=== PATIENT | female | born 1995 | race Caucasian/White ===

== ENCOUNTER 2019-10-20 12:31 | Outpatient (REF) | payer MEDICAID, SELFPAY ==
--- NOTE | 2019-10-20 11:00 | PAPFT_PTH ---
PATIENT: Gia Pedersen LOC: [facility]#:[id number] AGE/SX: 24/F ROOM: RE10/20/[address]: Fay Vaughn : 1995 BED: DIS: 10/20/2019 SPEC #: [id number] RECD: 10/23/19 12:56 STATUS: DELBERT REAntonio #: [id number] NINA: 10/20/19 11:[address]: Fay Tatum DEPT: [facility] Cytology RECD BY: Margoth Ch ENTERED: 10/23/19 12:56 SP TYPE: PAPFT OTHR DR: Meri Lucia Tissues: 1 - CX/ENDOCX FOR PAP SMEARS Procedures: PAP THIN PREP/UVM Screening Comments: [id number] (CHLAMYDIA/GC)
[2019-10-20 21:30] LABS: Hemoglobin A1C 5.6 % (3.8-5.6)
[2019-10-20 21:53] LABS: Calculated LDL 180 mg/dL (<100); Cholesterol 262 mg/dL (<200); HDL Cholesterol 57 mg/dL (40-60); TSH 2.74 uIU/mL (0.36-3.74); Triglyceride 129 mg/dL (<150)
[2019-10-24 14:22] LABS: Chlamydia Result Negative (Negative); GC Result Negative (Negative)
== END 2019-10-20 12:51 ==
LOC: NCHCN 12:31
PROVIDERS: PCP Family Medicine; Visit Provider Nurse Practitioner Family
DX: Z13.29 Encounter for screening for other suspected endocrine disorder (principal); Z13.1 Encounter for screening for diabetes mellitus; Z13.220 Encounter for screening for lipoid disorders; E66.9 Obesity, unspecified; Z00.00 Encounter for general adult medical examination without abnormal findings; Z12.4 Encounter for screening for malignant neoplasm of cervix
CPT/HCPCS: 80061; 87491; 87591; 88142; 83036; 84443

== ENCOUNTER 2019-10-25 09:51 | Outpatient (REF) | payer MEDICAID, SELFPAY ==
[2019-10-25 22:44] LABS: Calculated LDL 217 mg/dL (<100); Cholesterol 294 mg/dL (<200); HDL Cholesterol 60 mg/dL (40-60); Triglyceride 89 mg/dL (<150)
== END 2019-10-25 10:11 ==
LOC: NCHCN 09:51
PROVIDERS: PCP Family Medicine; Visit Provider Nurse Practitioner Family
DX: E66.9 Obesity, unspecified (principal); Z13.220 Encounter for screening for lipoid disorders
CPT/HCPCS: 80061

== ENCOUNTER 2020-06-19 13:38 | Outpatient (REF) | payer MEDICAID, SELFPAY ==
[2020-06-21 23:17] LABS: Patient Race White; SARS-CoV-2 RNA Undetected (Undetected); SARS-CoV-2 Specimen Source Nasopharynx
== END 2020-06-19 13:58 ==
LOC: NCHCN 13:38
PROVIDERS: PCP Family Medicine; Visit Provider Nurse Practitioner Family
DX: Z20.828 Contact with and (suspected) exposure to other viral communicable diseases (principal)
CPT/HCPCS: U0003

== ENCOUNTER 2020-10-17 21:53 | Outpatient (CLI) | payer MEDICAID, SELFPAY ==
--- NOTE | 2020-10-17 | DI.US_ITS ---
EXAM: US OB 1ST TRIMESTER CLINICAL HISTORY: AMENORRHEA, N91.2, POSITIVE TEST, IUD. TECHNIQUE: First trimester obstetrical ultrasound was performed. Perform both transabdominal and tr ansvaginal COMPARISON: No exams were available for comparison FINDINGS: There is an IUD which is low in position, partly within the upper cervical canal and the upper aspect in the lower uterine segment. There is an intrauterine gestational sac towards the fundus which measures 13 millimeters correspondi ng to approximately 6 weeks and 1 day. There is a normal appearing yolk sac therein. However, there is no visible pole at this time evident within the gestational sac. No evidence of subchorion ic hemorrhage. No uterine fibroids. Maternal ovaries: Right ovary measures 3 x 1.6 x 1.8 cm and contains small follicles Left ovary measures 3.2 x 1.8 x 3.2 cm and contains small follicles. There is no fluid in the cul-de-sac and adnexal regions. IMPRESSION:: There is both an IUD and intrauterine gestation sac. However, the IUD is in suboptimal position, somewhat low as described above. In addition, the intrauterine gestational sac contains a normal appearing yolk sac but does not appear to contain an obvious pole at this time. There is no extraovarian adnexal mass and there is no free fluid in the adnexal regions are cul-de-sa c. Recommend repeat transvaginal ultrasound examination in a few days time. DATA REPOSITORY:
== END 2020-10-17 22:13 ==
PROVIDERS: PCP Family Medicine; Visit Provider Nurse Practitioner Family
DX: N91.2 Amenorrhea, unspecified (principal); Z32.01 Encounter for pregnancy test, result positive; Z97.5 Presence of (intrauterine) contraceptive device
CPT/HCPCS: 76801

== ENCOUNTER 2020-10-24 00:35 | Outpatient (CLI) | payer MEDICAID, SELFPAY ==
--- NOTE | 2020-10-24 | DI.US_ITS ---
EXAM: US PELVIS TRANSVAGINAL CLINICAL HISTORY: IUD IN PLACE LAST US,NO POLE,? VIABILITY,CHECK POLE,HEARTBEAT. COMPARISON: US US OB 1ST TRIMESTER from 10/17/2020 TECHNIQUE: Transabdominal Transvaginal first trimester obstetrical ultrasound performed. FINDINGS: Sonographic images demonstrate a single intrauterine gestation. A yolk sac and pole are seen. Sonographically assessed gestational age based upon crown-rump length of 0.73 cm is: 6 weeks 4 days Estimated date of delivery based on this ultrasound is: 06/15/2021 heart rate motion is Dopplered at: 128 bpm. No free fluid identified. Both ovaries appear sonographically normal. The right ovary measures 2.4 x 1.8 x 1.7 cm. Small folli cular cysts are present. The left ovary measures 2.7 x 2.1 x 1.8 cm. There is a 1.7 x 1.5 x 1.5 cm corpus luteal cyst on the left ovary. Pelvic Measurments Uterus: 7.8 x 4.7 x 7.4 cm Rt Ovary: 3.4 x 1.0 x 1.7 cm Lt Ovary: 2.6 x 2.1 x 1.8 cm Uterus: There is a linear echogenic object within the endometrial canal. Based on the clinical histo ry, this likely represents an arm of the previously noted IUD. The IUD arm lies to the left of the g estational sac and closer to the internal os compared to the gestational sac. IMPRESSION: 1. There is a single living intrauterine gestation. Estimated sonographic age is 6 weeks 4 days. Th is is based on crown-rump length. 2. One arm of the recently removed IUD remains within the endometrial canal. It lies to the left of the gestational sac and closer to the internal os. It lies at least 1 cm away from the gestational s ac. DATA REPOSITORY:
== END 2020-10-24 00:36 | disposition home or self-care (01) ==
LOC: DI 00:36
PROVIDERS: PCP Family Medicine; Visit Provider Nurse Practitioner Family
DX: O26.31 Retained intrauterine contraceptive device in pregnancy, first trimester (principal)
CPT/HCPCS: 76830; 76856

== ENCOUNTER 2023-02-08 14:21 | Outpatient (REF) | payer MEDICAID, SELFPAY ==
--- NOTE | 2023-02-08 13:00 | PAPFT_PTH ---
PATIENT: Gia Pedersen LOC: [facility]#:[id number] AGE/SX: 27/F ROOM: RE02/08/[address]: Fay Vaughn : 1995 BED: DIS: 02/08/2023 SPEC #: [id number] RECD: 02/09/23 12:56 STATUS: DELBERT REQ #: [id number] NINA: 02/08/23 13:[address]: Fay Tatum DEPT: [facility] Cytology RECD BY: Margoth Ch ENTERED: 02/09/23 12:57 SP TYPE: PAPFT OTHR DR: Meri Lucia Tissues: 1 - CX/ENDOCX FOR PAP SMEARS Procedures: PAP THIN PREP/UVM Screening Comments: [id number]
[2023-02-08 21:23] LABS: HCT 40.6 % (36.0-46.0); HGB 13.6 g/dL (11.2-15.7); MCH 29.5 pg (27.0-33.0); MCHC 33.5 % (32.0-36.0); MCV 88 fL (80-95); MPV 11.2 fL (8.0-11.0); Platelet Count 255 10^3/uL (130-400); RBC 4.61 10^6/uL (3.93-5.22); RDW 12.8 % (11.7-14.6); RDW-SD 41.5 fL; WBC 6.37 10^3/uL (4.4-10.8)
[2023-02-08 21:57] LABS: ALT 28 U/L (14-59); AST 22 U/L (15-37); Albumin 3.9 g/dL (3.4-5.0); Alkaline Phosphatase 58 U/L (46-116); BUN 11 mg/dL (7-18); Bilirubin, Total 0.5 mg/dL (0.2-1.0); CREATININE 0.5 mg/dL (0.55-1.02); Calcium 8.7 mg/dL (8.5-10.1); Calculated LDL 190 mg/dL (<100); Chloride 103 mmol/L (98-107); Cholesterol 274 mg/dL (<200); Estimated GFR 130.94 (mL/min/1.73m2); Glucose 85 mg/dL (74-106); HDL Cholesterol 63 mg/dL (40-60); Potassium 3.8 mmol/L (3.5-5.1); Sodium 137 mmol/L (136-145); TSH 2.05 uIU/mL (0.36-3.74); Total Protein 7.8 g/dL (6.4-8.2); Triglyceride 107 mg/dL (<150)
[2023-02-09 11:55] LABS: Hemoglobin A1C 5.1 % (<5.7)
== END 2023-02-08 14:22 | disposition home or self-care (01) ==
LOC: NCHCN 14:21
PROVIDERS: PCP Family Medicine; Visit Provider Nurse Practitioner Family
DX: Z12.4 Encounter for screening for malignant neoplasm of cervix (principal)
CPT/HCPCS: 80053; 80061; 85027; 88142; 83036; 84443

== ENCOUNTER 2023-06-17 20:38 | Outpatient (REF) | payer MEDICAID, SELFPAY ==
[2023-06-17 21:12] LABS: Abs Immature Grans 0.02 10^3/uL (0.0-0.06); Absolute Basophil Count 0.02 10^3/uL (0.0-0.2); Absolute Eosinophil Count 0.08 10^3/uL (0.0-0.7); Absolute Monocyte Count 0.36 10^3/uL (0.1-0.8); Absolute Neutrophil Count 4.65 10^3/uL (1.2-6.7); Basophils % 0.3; Eosinophils % 1.1; HCT 40.8 % (36.0-46.0); HGB 13.6 g/dL (11.2-15.7); Immature Grans % 0.3; MCHC 33.3 % (32.0-36.0); MCV 90 fL (80-95); MPV 11.5 fL (8.0-11.0); Neutrophils % 64.3; Platelet Count 251 10^3/uL (130-400); RBC 4.54 10^6/uL (3.93-5.22); RDW 12.7 % (11.7-14.6); RDW-SD 41.6 fL; WBC 7.23 10^3/uL (4.4-10.8)
[2023-06-17 21:21] LABS: ALT 24 U/L (14-59); AST 20 U/L (15-37); Albumin 3.6 g/dL (3.4-5.0); Alkaline Phosphatase 55 U/L (46-116); Anion Gap 9.1 mmol/L (3-11); BUN 20 mg/dL (7-18); Bilirubin, Total 0.2 mg/dL (0.2-1.0); CO2 25.9 mmol/L (21.0-32.0); CREATININE 0.7 mg/dL (0.55-1.02); Calcium 9.2 mg/dL (8.5-10.1); Chloride 105 mmol/L (98-107); Estimated GFR 120.74 (mL/min/1.73m2); Glucose 108 mg/dL (74-106); Lipase 59 U/L (16-77); Potassium 4.2 mmol/L (3.5-5.1); Sodium 140 mmol/L (136-145); Total Protein 7.4 g/dL (6.4-8.2)
== END 2023-06-17 20:39 | disposition home or self-care (01) ==
LOC: NCHCN 20:38
PROVIDERS: PCP Family Medicine; Visit Provider Family Medicine
DX: R10.13 Epigastric pain (principal)
CPT/HCPCS: 80053; 83690; 85025

== ENCOUNTER 2023-12-13 19:56 | Outpatient (REF) | payer MEDICAID, SELFPAY | END 2023-12-13 19:57 | disposition home or self-care (01) | LOC: LBN 19:56 | PROVIDERS: PCP Family Medicine; Visit Provider Nurse Practitioner Family | DX: J02.9 Acute pharyngitis, unspecified (principal) | CPT/HCPCS: 87070 ==

== ENCOUNTER 2024-08-28 13:45 | Outpatient (REF) | payer MEDICAID, SELFPAY ==
[2024-08-28 15:41] LABS: Abs Immature Grans 0.03 10^3/uL (0.0-0.06); Absolute Basophil Count 0.02 10^3/uL (0.0-0.2); Absolute Eosinophil Count 0.12 10^3/uL (0.0-0.7); Absolute Lymphocyte Count 2.12 10^3/uL (1.2-3.4); Absolute Monocyte Count 0.39 10^3/uL (0.1-0.8); Absolute Neutrophil Count 4.41 10^3/uL (1.2-6.7); Basophils % 0.3 %; Eosinophils % 1.7 %; HCT 44.1 % (36.0-46.0); HGB 14.8 g/dL (11.2-15.7); Immature Grans % 0.4 %; Lymphocytes % 29.9 %; MCH 29.9 pg (27.0-33.0); MCHC 33.6 % (32.0-36.0); MCV 89 fL (80-95); MPV 10.9 fL (8.0-11.0); Monocytes % 5.5 %; Neutrophils % 62.2 %; Platelet Count 251 10^3/uL (130-400); RBC 4.95 10^6/uL (3.93-5.22); RDW 12.7 % (11.7-14.6); RDW-SD 41.5 fL; WBC 7.09 10^3/uL (4.4-10.8)
[2024-08-28 16:04] LABS: Hemoglobin A1C 5.4 % (<5.7)
[2024-08-28 16:51] LABS: ALT 41 U/L (14-59); AST 24 U/L (15-37); Alkaline Phosphatase 54 U/L (46-116); Anion Gap 10.5 mmol/L (3-11); BUN 11 mg/dL (7-18); Bilirubin, Total 0.42 mg/dL (0.2-1.0); CO2 26.5 mmol/L (21.0-32.0); CREATININE 0.6 mg/dL (0.55-1.02); Calcium 9.2 mg/dL (8.5-10.1); Calculated LDL 167 mg/dL (<100); Chloride 104 mmol/L (98-107); Cholesterol 266 mg/dL (<200); Estimated GFR 123.76 (mL/min/1.73m2); Glucose 82 mg/dL (74-106); HDL Cholesterol 79 mg/dL (40-60); Potassium 4.6 mmol/L (3.5-5.1); Sodium 141 mmol/L (136-145); TSH 2.15 uIU/mL (0.36-3.74); Total Protein 7.9 g/dL (6.4-8.2); Triglyceride 100 mg/dL (<150); Vitamin D 25 Total 22.3 ng/mL (30-100)
== END 2024-08-28 13:46 | disposition home or self-care (01) ==
LOC: NCHCN 13:45
PROVIDERS: PCP Family Medicine; Visit Provider Nurse Practitioner Family
DX: E66.9 Obesity, unspecified (principal); E78.5 Hyperlipidemia, unspecified; R53.83 Other fatigue
CPT/HCPCS: 80053; 80061; 82306; 83036; 84443; 85025

== ENCOUNTER 2025-02-19 02:35 | Outpatient (CLI) | payer MEDICAID, SELFPAY ==
--- NOTE | 2025-02-19 14:30 | DI.US_ITS ---
APPROVED REPORT EXAM: Comprehensive 2D, Doppler, and color-flow Echocardiogram Patient Location: Out-Patient [facility] Operator: Dwain Aguilar RDCS (AE) Indications: Murmur Other Information Study Quality: Adequate Conclusion Normal left ventricular wall thickness and chamber size. Ejection fraction is 65%. Wall motion is n ormal Normal right ventricular size and function Both atria are normal in size There is no structural or hemodynamically significant valvular disease Wall motion Left Ventricle The left ventricle is normal size. Left ventricular systolic function is normal. The left ventricular ejection fraction is within the normal range. There is normal left ventricular wall thickness. There is normal LV segmental wall motion. The left ventricular diastolic function is normal. There is no v entricular septal defect visualized. LVEF is LVEF is 65%. Right Ventricle The right ventricle is normal size. The right ventricular systolic function is normal. Atria The left atrium size is normal. The right atrium size is normal. The interatrial septum is intact wit h no evidence for an atrial septal defect. Aortic Valve The aortic valve is normal in structure. Aortic valve is trileaflet. There is no aortic valvular sten osis. No aortic regurgitation is present. Mitral Valve The mitral valve is normal in structure. No evidence of mitral valve stenosis. There is no mitral chris ve regurgitation noted. Tricuspid Valve The tricuspid valve is normal in structure. There is no tricuspid valve stenosis. Trace tricuspid reg urgitation. The RVSP is 19.1 mmHg. Pulmonic Valve The pulmonary valve is normal in structure. There is no pulmonic valvular stenosis. Trace pulmonic re gurgitation. Great Vessels The aortic root is normal in size. The ascending aorta is normal in size. Aortic arch is normal in ca liber. IVC is normal in size and collapses >50% with inspiration. Pericardium There is no pericardial effusion. 2D Dimensions IVSD d PLAX 0.86 cm F: 0.6-1.0 Ao Root d 2.80 cm F: 2.7 - 3.3 LVPW d PLAX 0.86 cm F: 0.6 - 1.0 Ao Asc Diam d 2.76 cm F: 2.3 - 3.1 LVID d PLAX 4.37 cm F: 3.8 - 5.2 LVDs 2.94 cm F: 2.2 - 3.5 LV EF Teichholz 61.4 % FS 32.73 % LV EDV (Teich) 86.3 mL LV ESV (Teich) 33.3 mL Stroke Vol Index (Teich) 27.75 M-Mode TAPSE 3.10 cm (M/F) >1.7 Auto EF LV EDV A4C 103.8 mL LV EDV A2C 114.1 mL LV EDV BP 109.2 mL LV ESV A4C 38.8 mL LV ESV A2C 43.7 mL LV ESV BP 41.7 mL LVEF(%) A4C 62.6 % LVEF(%) A2C 61.7 % LVEF(%) BP 61.8 % LV SV A4C 65.0 ml LV SV A2C 70.4 ml LV SV BP 67.5 ml LV CO A4C 4.4 L/min LV CO A2C 5.5 L/min LV CO BP 5.0 L/min HR A4C 68.03 BPM HR A2C 78.74 BPM LV EDV Index (BP) LA Volume LA Length A4C 3.7 cm LA Length A2C 3.8 cm LA Area A4C s 11.06 cm2 LA Area A2C s 8.72 cm2 LA Vol A4C A-L 27.84 mL LA Vol A2C A-L 17.22 mL LA Vol Biplane A-L 22.0 mL LA Vol/BSA A4C A-L LA Vol/BSA A2C A-L LA Vol/BSA BP A-L 11.5 mL/m2 LA Vol A4C MOD 27.2 mL LA Vol A2C MOD 16.4 mL LA Vol BP MOD 21.0 mL RA Volume RA Area A4C 7.9 cm2 RA ESV A4C (A-L) 15.1mL RA Vol/BSA A4C A-L RA Length A4C 3.5 cm RA ESV A4C (MOD) 14.4mL LV Diastology MV E' medial 0.171 (>0.07 m/s) MV E Vmax 1.08 (0.4-1.3 m/s) MV E/E' MED 6.32 (<14) MV A Vmax 0.80 (0.4-1.3 m/s) MV E' lateral 0.156 (>0.1 m/s) E/A Ratio 1.4 MV E/E' LAT 6.92 (<14) MV E' Average 0.163 m/s MV E/E'(average) 6.61 Aortic Valve AoV Vmax 1.09 m/s LVOT Vmax 1.00 m/s AoV Peak Grad 4.8 mmHg LVOT Peak Grad 4.0 mmHg AoV Area (Vmax) 3.01 cm2 LVOT VTI 0.206 m AoV VTI 0.255 m LVOT Mean Grad 2.0 mmHg AoV Mean Amc. 0.80 m/s LVOT SV 67.86 mL AoV Mean Grad 2.9 mmHg LVOT Diam s 2.00 cm AoV Area (VTI) 2.66 cm2 AV Regurg Peak Gr. 4.75 mmHg Velocity Ratio 0.92 Mitral Valve MV DT 162 (160-240 msec) Pulmonary Valve PV Vmax 0.96 (0.5-1.5 m/s) RVOT Vmax 0.83 m/s PV Peak Grad 3.7 mmHg RVOT Peak Gr. 2.8 mmHg PV Mean Mac 0.74 m/s RVOT VTI 0.188 m PV Mean Grad 2.4 mmHg RVOT Mean Gr. 1.6 mmHg Tricuspid Valve RA Pressure 3.00 mmHg TR Vmax 2.00 m/s TR Peak Grad 16.0 mmHg RVSP (TR) 19.1 mmHg
== END 2025-02-19 02:55 ==
LOC: DI 02:35
PROVIDERS: PCP Family Medicine; Visit Provider Internal Medicine Cardiovascular Disease
DX: R01.1 Cardiac murmur, unspecified (principal)
CPT/HCPCS: 93306

== ENCOUNTER 2025-06-07 04:19 | Outpatient (CLI) | payer MEDICAID, SELFPAY ==
--- NOTE | 2025-06-07 06:19 | DI.US_ITS ---
Exam(s) US OB 1ST TRIMESTER EXAM: US OB 1ST TRIMESTER CLINICAL HISTORY: dating,EARLY STAGE ,Z34.90. COMPARISON: US US PELVIS TRANSVAGINAL from 10/24/2020 TECHNIQUE: Transabdominal Transvaginal first trimester obstetrical ultrasound performed. FINDINGS: Sonographic images demonstrate a single intrauterine gestation. A yolk sac and pole are seen. motion was identified during the examination. Note is made of a 1.0 x 0.5 x 0.9 cm subchorionic hemorrhage superior and to the left of the gestational sac. Sonographically assessed gestational age based upon crown-rump length of 2.2 cm is: 8 weeks 6 days Estimated date of delivery based on this ultrasound is: 01/11/2026 Estimated date of delivery based upon LMP: 01/07/2026 heart rate motion is Dopplered at: 179 bpm. No free fluid identified. Both ovaries appear sonographically normal. There is a 1.9 x 0.9 x 1.8 cm hypoechoic mass in the posterior fundus of the uterus most consistent with a fibroid. Pelvic Measurments Uterus: 10.7 long by 6.1 AP by 9.2 transverse cm Rt Ovary: 3.3 x 2.1 x 2.2 cm Lt Ovary: 2.5 x 1.4 x 1.9 cm IMPRESSION: There is a single living intrauterine gestation. Estimated sonographic age is 8 weeks 6 days. DATA REPOSITORY:
== END 2025-06-07 04:39 ==
LOC: DI 04:19
PROVIDERS: PCP Family Medicine; Visit Provider Obstetrics & Gynecology
DX: Z34.91 Encounter for supervision of normal pregnancy, unspecified, first trimester (principal); Z3A.08 8 weeks gestation of pregnancy
CPT/HCPCS: 76801

== ENCOUNTER 2025-06-21 04:05 | Outpatient (CLI) | payer MEDICAID, SELFPAY ==
[2025-06-21 15:39] LABS: Abs Immature Grans 0.03 10^3/uL (0.0-0.06); HCT 37.5 % (36.0-46.0); HGB 12.6 g/dL (11.2-15.7); Immature Grans % 0.4 %; MCH 29.8 pg (27.0-33.0); MCHC 33.6 % (32.0-36.0); MCV 89 fL (80-95); MPV 10.4 fL (8.0-11.0); Platelet Count 223 10^3/uL (130-400); RBC 4.23 10^6/uL (3.93-5.22); RDW 12.4 % (11.7-14.6); RDW-SD 40.6 fL; WBC 7.10 10^3/uL (4.4-10.8)
[2025-06-21 15:45] LABS: Hemoglobin A1C 5.0 % (<5.7)
[2025-06-22 18:26] LABS: HIV-1/2 Ag & Ab Screen Negative (Negative)
[2025-06-22 18:31] LABS: Hepatitis C Ab w Rflx HCV PCR Negative (Negative)
[2025-06-25 10:47] LABS: Rubella IgG Ab (UVM) Positive (See Note)
== END 2025-06-21 04:06 | disposition home or self-care (01) ==
LOC: LBO 04:05
PROVIDERS: PCP Family Medicine; Visit Provider Advanced Practice Midwife
DX: Z34.91 Encounter for supervision of normal pregnancy, unspecified, first trimester (principal)
CPT/HCPCS: 36415; 81220; 81222; 81329; 86787; 86803; 86850; 86900; 86901; 87340; 87389; 83036; 85025; 86762

== ENCOUNTER 2025-06-21 15:23 | Outpatient (REF) | payer MEDICAID, SELFPAY ==
[2025-06-25 11:57] LABS: Chlamydia Result Negative (Negative); GC Result Negative (Negative)
== END 2025-06-21 15:24 | disposition home or self-care (01) ==
LOC: LBN 15:23
PROVIDERS: PCP Family Medicine; Visit Provider Advanced Practice Midwife
DX: Z34.91 Encounter for supervision of normal pregnancy, unspecified, first trimester (principal)
CPT/HCPCS: 87491; 87591; 87086